=== PATIENT | female | born 1960 | race Caucasian/White ===

== ENCOUNTER → 2023-08-14 | Outpatient (CLI) | payer MEDICARE, OTHER | LOC: MHCPAIN 12:52 | DX: M54.12 Radiculopathy, cervical region (principal); M47.892 Other spondylosis, cervical region; J44.9 Chronic obstructive pulmonary disease, unspecified; I10 Essential (primary) hypertension; F17.210 Nicotine dependence, cigarettes, uncomplicated | CPT/HCPCS: G0463 ==

== ENCOUNTER → 2023-09-20 | Outpatient (CLI) | payer MEDICARE, OTHER ==
[~2023-09-20] MED LIST: Iohexol 300 - 10 ML VIAL ONE; Lidocaine PF 2% (20 MG/ML) 2 ML VIAL ONE
== END ==
LOC: MHCPAIN 13:50
DX: M54.12 Radiculopathy, cervical region (principal)
CPT/HCPCS: J1100; Q9967

== ENCOUNTER → 2023-12-19 | Outpatient (CLI) | payer MEDICARE, OTHER | LOC: MHCPAIN 14:27 | DX: M43.12 Spondylolisthesis, cervical region (principal); M47.812 Spondylosis without myelopathy or radiculopathy, cervical region; M48.02 Spinal stenosis, cervical region | CPT/HCPCS: G0463 ==